=== PATIENT | female | born 1970 | race Caucasian/White ===

== ENCOUNTER 2016-03-03 06:14 | Day surgery (SDC) | payer MEDICAID ==
[2016-03-02 09:39] VITALS: BMI 33.6
[~2016-03-03] VITALS: Ht 149.9 cm; Wt 53.6 kg
[2016-03-03] VITALS (10 sets, daily range): BP systolic 96–138; BP diastolic 59–79; PULSE 64–80; RESP 11–18; Ht 149.9 cm; Wt 53.6 kg
[~2016-03-03 06:14] MED LIST: NAPR-260 PO
[2016-03-03 06:52] LABS: BASOPHILS % 0.9 % (0.0-2.0); EOSINOPHILS # 0.2 10^3/ul (0.0-0.5); EOSINOPHILS % 2.9 % (0.0-7.0); HEMATOCRIT 42.5 % (37.0-47.0); HEMOGLOBIN 14.5 g/dl (12.0-16.0); LYMPHOCYTES # 1.4 10^3/ul (0.8-2.9); LYMPHOCYTES % 26.3 % (15.0-51.0); MEAN CORPUSCULAR HEMOGLOBIN 31.7 pg (29.0-33.0); MEAN CORPUSCULAR VOLUME 93.1 fl (82.0-101.0); MEAN PLATELET VOLUME 7.1 fl (7.4-10.4); MONOCYTE # 0.4 10^3/ul (0.3-0.9); MONOCYTES % 8.1 % (0.0-11.0); NEUTROPHIL # 3.4 10^3/ul (1.6-7.5); NEUTROPHILS % 61.8 % (39.0-77.0); PLATELET COUNT 228 10^3/UL (140-440); RED BLOOD COUNT 4.56 10^6/ul (4.20-5.40); RED CELL DISTRIBUTION WIDTH 12.6 % (11.5-14.5); UNCORRECTED WBC 5.5 10^3/ul (4.8-10.8); WHITE BLOOD COUNT 5.5 10^3/ul (4.8-10.8)
[2016-03-03 06:58] LABS: CONDITION 1
[2016-03-03] MEDS ORDERED: SOD CHLORIDE 0.9% 1,000 ML IV SCH (07:00)
[2016-03-03] MEDS ORDERED: CEFAZOLIN 2 GM/50 ML (PMX) 50 ML IVPB SCH (07:00)
[2016-03-03 07:15] LABS: INR 0.98
[2016-03-03 07:21] LABS: CREATININE 0.52 mg/dl (0.44-1.00); POTASSIUM 3.6 mmol/L (3.5-5.1)
[2016-03-03] MEDS ORDERED: PROPOFOL 20 ML ONE (07:51)
[2016-03-03] MEDS ORDERED: MIDAZOLAM 1 MG/ML 2 ML INJ ONE (07:51)
[2016-03-03] MEDS ORDERED: FENTAnyl 50 MCG/ML VIAL ONE (07:51)
[2016-03-03] MEDS ORDERED: LIDOCAINE 1% (MPF) 30 ML INJ ONE (07:52)
[2016-03-03] MEDS ORDERED: PHENYLephrine (100 MCG/ML) 5ML SYG ONE (08:35)
[2016-03-03] MEDS ORDERED: CEFAZOLIN 1 GM INJ ONE (08:35)
[2016-03-03] MEDS ORDERED: KETOROLAC 30 MG INJ ONE (08:36)
[2016-03-03] MEDS ORDERED: METOCLOPRAMIDE 10 MG INJ ONE (08:36)
[2016-03-03] MEDS ORDERED: DEXAMETHASONE 4 MG/ML 1 ML INJ ONE (08:36)
[2016-03-03] MEDS ORDERED: ONDANSETRON 4 MG INJ ONE (08:36)
[2016-03-03] MEDS ORDERED: EPHEDrine SULFATE 50 MG/5 ML SYG IV PRN (09:00)
[2016-03-03] MEDS ORDERED: MEPERIDINE 25 MG INJ IV PRN (09:00)
[2016-03-03] MEDS ORDERED: HYDROmorphONE (0.2 MG/ML) 10ML SYG IV PRN ×2 (09:00)
[2016-03-03] MEDS ORDERED: ONDANSETRON 4 MG INJ IV PRN (09:00)
[2016-03-03] MEDS ORDERED: DIPHENHYDRAMINE 50 MG INJ IV PRN (09:00)
[2016-03-03] MEDS ORDERED: morphine (1 MG/ML) 10ML SYRINGE IV PRN ×3 (09:00)
[2016-03-03] MEDS ORDERED: LABETALOL HCL 20MG INJ IV PRN (09:00)
--- NOTE | 2016-03-03 09:19 | OPR ---
DATE OF OPERATION: 03/03/2016 PREOPERATIVE DIAGNOSIS: Left axillary mass. POSTOPERATIVE DIAGNOSIS: Left axillary mass, rule out lymphoma. OPERATION PERFORMED: Resection of left axillary mass (enlarged lymph nodes). ANESTHESIA: General. ANESTHESIOLOGIST: SURGEON: Daniel Morales MD [employer] INST[employer]ER: Manuel Hinojosa MD INDICATIONS FOR PROCEDURE: The patient is a 45-year-old female who presented with a suspicious mass in her left axilla that was enlarging, suspicious for possible malignancy. She was counseled as to the need for resection of the mass to obtain a definitive diagnosis. She consented and was schedul ed for surgery. DESCRIPTION OF PROCEDURE: The patient was brought to the operating theater, placed under general an esthesia. The left axillary region was prepped and draped in the usual sterile fashion. Approximat vineet a 3 cm incision was made in the left axillary hairline. Subcutaneous tissue was dissected with cautery down through the clavipectoral fascia, and an abnormal-appearing cluster of lymph nodes was identified. Decision was made to resect this cluster. This was done using LigaSure device. Specim en was sent for intraoperative analysis, performed by attending pathologist, Dr. Mackey. Intraopera tive analysis revealed findings suspicious for possible lymphoma. Dr. Mackey stated he had adequate tissue sample for definitive diagnosis; therefore, the wound was irrigated. Minimal bleeding was c ontrolled with cautery. A #10 flat Da-Webber drain was then brought through the left mid axilla ry line, cut to size, and laid within the axilla and secured in place with 2-0 nylon suture in a sta ndard fashion. The skin was then reapproximated with 4-0 Vicryl suture in subcuticular fashion. Th e patient tolerated the procedure well. Estimated blood loss was approximately 10 mL. There were n o complications, and the patient was transported in stable condition to the recovery room. Dictated By: DANIEL MORALES MD TL/NTS Conf#: [id number] DID#: [id number]
[2016-03-03] MEDS: HYDROmorphONE (0.2 MG/ML) 10ML SYG IV PRN ×3 (09:25→09:45)
== END 2016-03-03 23:00 | disposition home or self-care (01) ==
LOC: SDS 06:14
PROVIDERS: ATTEND Surgery Surgical Oncology
DX: C82.14 Follicular lymphoma grade II, lymph nodes of axilla and upper limb (principal)
CPT/HCPCS: 38500; 80048; 84703; 85025; 85610; 85730; 88307; 88331; J0690; J1100; J1170; J1885; J2250; J2370; J2405; J2765; J3010; Z7512; Z7610

== ENCOUNTER 2016-04-07 20:48 | Inpatient (IN) | payer MEDICAID ==
[~2016-04-07] VITALS: Ht 139.7 cm; Wt 53.2 kg
[2016-04-07] MEDS ORDERED: HYDROCODONE/APAP (5/325) TAB PO ONE (21:30)
[2016-04-07 22:19] LABS: ADD SCAN DIFF NO
[2016-04-07 22:21] LABS: BASOPHILS % 0.7 % (0.0-2.0); EOSINOPHILS # 0.1 10^3/ul (0.0-0.5); EOSINOPHILS % 1.5 % (0.0-7.0); HEMATOCRIT 43.4 % (37.0-47.0); HEMOGLOBIN 14.6 g/dl (12.0-16.0); LYMPHOCYTES # 1.4 10^3/ul (0.8-2.9); LYMPHOCYTES % 23.6 % (15.0-51.0); MEAN CORPUSCULAR HEMOGLOBIN 31.9 pg (29.0-33.0); MEAN CORPUSCULAR HGB CONC 33.6 g/dl (32.0-37.0); MEAN CORPUSCULAR VOLUME 94.8 fl (82.0-101.0); MONOCYTE # 0.6 10^3/ul (0.3-0.9); MONOCYTES % 9.1 % (0.0-11.0); NEUTROPHIL # 3.9 10^3/ul (1.6-7.5); NEUTROPHILS % 64.8 % (39.0-77.0); PLATELET COUNT 227 10^3/UL (140-415); RED BLOOD COUNT 4.58 10^6/ul (4.20-5.40); RED CELL DISTRIBUTION WIDTH 11.7 % (11.5-14.5); WHITE BLOOD COUNT 6.1 10^3/ul (4.8-10.8)
--- NOTE | 2016-04-07 22:21 | RADRPT ---
PROCEDURE: Ultrasound of the left parotid gland CLINICAL INDICATION: Left neck mass inferior to the ear with pain TECHNIQUE: Multiple transverse and longitudinal wiggins scale and color Doppler images of the left pa rotid gland were obtained. COMPARISON: None FINDINGS: The left parotid gland measures approximately 3.2 x 1.8 x 1.7 cm in size. The left parotid glands h ypoechoic in echogenicity. No focal mass or fluid collection is seen. No dilated parotid duct is i dentified. IMPRESSION: Hypoechoic left parotid gland which may be inflammatory in nature. Further evaluation with CT of th e neck with IV contrast is suggested. RPTAT: HPNM Physician Richardson Date Time Electronically viewed and signed by Physician Richardson on 04/07/2016 22:21 /
[2016-04-07 22:32] LABS: ALBUMIN 4.2 g/dl (3.3-4.9)
[2016-04-07 22:33] LABS: POTASSIUM 3.5 mmol/L (3.5-5.1)
[2016-04-07 22:35] LABS: ALBUMIN/GLOBULIN RATIO 1.27; BILIRUBIN,INDIRECT 0.9 mg/dl (0-1.1); BILIRUBIN,TOTAL 0.9 mg/dl (0.2-1.3); CREATININE 0.54 mg/dl (0.44-1.00); TOTAL PROTEIN 7.5 g/dl (6.1-8.1)
[2016-04-07 22:36] LABS: CALCIUM 9.2 mg/dl (8.4-10.2)
[2016-04-07] MEDS ORDERED: ONDANSETRON 4 MG INJ IV STA (23:08)
[2016-04-07] MEDS ORDERED: morphine 4 MG/ML VIAL IV STA (23:08)
--- NOTE | 2016-04-07 23:25 | ERA ---
ER Documentation Chief Complaint Date/Time DATE: 04/07/16 TIME: 23:12 Chief Complaint swelling left side of neck below ear x 3 months HPI 45-year-old female complaining of left-sided neck swelling and pain since this morning. Patient stated that she had a enlarged lymph node on the left side of the neck for several month, but it was small, without pain. Swelling started this morning, she feels hot from the area, the pain is constant. She also reports numbness in the left side of her chin. Patient stated that she had a enlarged lymph node on her left axilla that was biopsied one month ago. The biopsy showed B cell proliferative lymphoma. She does not have a PCP. The provider who did her biopsy had refer her to a PCP, but her appointment is on . She have not received chemotherapy. 2 weeks ago, she noticed a lymph node on her right axilla, and one in the right inguinal area. Denies fever or chills. Denies recent weight loss. Denies tobacco, alcohol, or illicit drug use. Patient is , living at home with her and 2 teenage daughters, aged 13 and 15. ROS All systems reviewed and are negative except as per history of present illness. Medications Home Meds Reported Medications [None] No Conflict Check 04/01/10 Allergies Allergies: Coded Allergies: No Known Allergy (Verified , 04/07/16) PMhx/Soc History of Surgery: Yes (C/ S X1) Anesthesia Reaction: No Hx Neurological Disorder: No Hx Respiratory Disorders: No Hx Cardiac Disorders: No Hx Psychiatric Problems: No Hx Miscellaneous Medical Probl: Yes (LEFT AXILLARY/NECK NODE) Hx Alcohol Use: No Hx Substance Use: No Hx Tobacco Use: No Smoking Status: Never smoker Physical Exam Vitals Vital Signs Date Time Temp Pulse Resp B/P Pulse Ox O2 Delivery O2 Flow Rate FiO2 04/07/16 20:58 98.8 84 20 141/65 99 Physical Exam General impression: Well-developed, well-nourished. Alert, oriented, in no acute distress Head: Normocephalic, atraumatic. Eyes: PERRL, EOM normal. Conjunctiva not injected. Neck: Supple. A 3 cm sized, firm mass noted on the left neck, adjacent to the angle of the mandible. Tender to light palpation. No nuchal rigidity. Respiration: Normal respiratory effort. Lungs clear to auscultate bilaterally. No wheezes, rales or rhonchi. Cardiovascular: Regular rate and rhythm. No murmurs or extra heart sounds. Abdomen: Abdomen normal to inspection. Nontender. No masses or organomegaly. Bowel sounds normal. Back: Normal to inspection. No midline spine tenderness. No CVA tenderness. Extremities: Extremities normal to inspection, nontender. ROM normal. Lymph: A 1x1.5 cm sized lymph node noted on the left axilla, a 1.5x2 cm sized lymph node noted in the right inguinal canal. Both nontender. Neuro: Mental status normal, speech normal. POND TENDER grossly intact. Skin: Normal turgor. No rash or lesions. Psych: Normal mood and affect. Result Diagram: 04/07/16220704/07/162207 Results 24 hrs Laboratory Tests Test 04/07/16 22:08 Alanine Aminotransferase (ALT/SGPT) 32IU/L Albumin 4.2g/dl Albumin/Globulin Ratio 1.27 Alkaline Phosphatase 75IU/L Anion Gap 16 Aspartate Amino Transf (AST/SGOT) 35IU/L Basophils # 0.010^3/ul Basophils % 0.7% Blood Urea Nitrogen 12mg/dl Calcium Level 9.2mg/dl Carbon Dioxide Level 29mmol/L Chloride Level 102mmol/L Creatinine 0.54mg/dl Direct Bilirubin 0.00mg/dl Eosinophils # 0.110^3/ul Eosinophils % 1.5% Globulin 3.30g/dl Glucose Level 125mg/dl Hematocrit 43.4% Hemoglobin 14.6g/dl Indirect Bilirubin 0.9mg/dl Lactate Dehydrogenase 483IU/L Lymphocytes # 1.410^3/ul Lymphocytes % 23.6% Mean Corpuscular Hemoglobin 31.9pg Mean Corpuscular Hemoglobin Concent 33.6g/dl Mean Corpuscular Volume 94.8fl Mean Platelet Volume 9.0fl Monocytes # 0.610^3/ul Monocytes % 9.1% Neutrophils # 3.910^3/ul Neutrophils % 64.8% Nucleated Red Blood Cells # 0.010^3/ul Nucleated Red Blood Cells % 0.0/100WBC Platelet Count 25503^3/UL Potassium Level 3.5mmol/L Red Blood Count 4.5810^6/ul Red Cell Distribution Width 11.7% Sodium Level 143mmol/L Total Bilirubin 0.9mg/dl Total Protein 7.5g/dl Uric Acid 4.0mg/dl White Blood Count 6.110^3/ul Current Medications Medications (Trade) Dose Ordered Sig/[place] Route PRN Reason Start Time Stop Time Status Last Admin Dose Admin Acetaminophen/ Hydrocodone Bitart ([place] (5/325)) 1 tab ONCE ONCE PO 04/07/16 21:30 04/07/16 21:32 DC 04/07/16 22:12 Morphine Sulfate (morphine) 4 mg ONCE STAT IV 04/07/16 23:08 04/07/16 23:09 DC Ondansetron HCl (Zofran Inj) 4 mg ONCE STAT IV 04/07/16 23:08 04/07/16 23:09 DC Procedures/MDM Well-appearing 45-year-old female presented to ED with newly diagnosed B-cell proliferative lymphoma, and increasing number of enlarged lymph nodes at multiple locations. I discussed the patient was Dr. Munson. Since patient does not have PCP follow-up and symptoms is getting worse, Dr. Munson recommended that patient be admitted to receive oncology consult and initiate chemotherapy. Ultrasound of the neck soft tissue showed a hypoechoic parotid gland measuring approximately 3.2 x 1.8 x 1.7 cm in size. CBC, CMP, uric acid, lactate dehydrogenase, and protein electrophoresis are obtained. Protein electrophoresis results are pending at this time. All other labs are unremarkable. Patient given Independence 5/325 p.o. in the ED for pain. Patient reports no relief of pain after Independence. Morphine 4 mg and Zofran 4 mg IV was then given to the patient. Patient will be admitted to MedSurg unit. Dr. Munson contacted the hospitalist for admission. TANISHA SANFORD NP Apr 07, 2016 23:24
[2016-04-07] MEDS ORDERED: DOCUSATE SODIUM 100 MG CAP PO PRN (23:30)
[2016-04-07] MEDS ORDERED: ZOLPIDEM 5 MG TAB PO PRN (23:30)
[2016-04-07] MEDS ORDERED: MAGNESIUM HYDROXIDE 30ML CUP PO PRN (23:30)
[2016-04-07] MEDS ORDERED: ACETAMINOPHEN 325 MG TAB PO PRN (23:30)
[2016-04-07] MEDS ORDERED: NACL 0.9% 3 ML SYG IV SCH (23:30)
[2016-04-08 00:50] VITALS: BP 127/72; PULSE 79; RESP 16; Ht 139.7 cm; Wt 53.2 kg
[2016-04-08] MEDS: morphine 2 MG INJ IV PRN (04:33)
[2016-04-08 05:28] LABS: ADD SCAN DIFF NO; BASOPHILS % 0.6 % (0.0-2.0); EOSINOPHILS # 0.1 10^3/ul (0.0-0.5); EOSINOPHILS % 1.7 % (0.0-7.0); HEMATOCRIT 40.8 % (37.0-47.0); HEMOGLOBIN 13.3 g/dl (12.0-16.0); LYMPHOCYTES # 1.4 10^3/ul (0.8-2.9); LYMPHOCYTES % 26.3 % (15.0-51.0); MEAN CORPUSCULAR HEMOGLOBIN 31.1 pg (29.0-33.0); MEAN CORPUSCULAR HGB CONC 32.6 g/dl (32.0-37.0); MEAN CORPUSCULAR VOLUME 95.3 fl (82.0-101.0); MEAN PLATELET VOLUME 9.3 fl (7.4-10.4); MONOCYTE # 0.6 10^3/ul (0.3-0.9); MONOCYTES % 10.5 % (0.0-11.0); NEUTROPHIL # 3.2 10^3/ul (1.6-7.5); NEUTROPHILS % 60.5 % (39.0-77.0); PLATELET COUNT 209 10^3/UL (140-415); RED BLOOD COUNT 4.28 10^6/ul (4.20-5.40); RED CELL DISTRIBUTION WIDTH 11.8 % (11.5-14.5); WHITE BLOOD COUNT 5.3 10^3/ul (4.8-10.8)
[2016-04-08 05:41] LABS: POTASSIUM 3.4 mmol/L (3.5-5.1)
[2016-04-08 05:44] LABS: CREATININE 0.51 mg/dl (0.44-1.00)
[2016-04-08 05:45] LABS: CALCIUM 8.6 mg/dl (8.4-10.2); CHOL/HDL RATIO 3.1 RATIO; PHOSPHORUS 3.9 mg/dl (2.5-4.9)
[2016-04-08 06:58] LABS: T3 UPTAKE 36.7 % (23.5-40.5)
[2016-04-08 08:01] VITALS: BP 134/80; RESP 20
[2016-04-08] MEDS: HYDROCODONE/APAP (5/325) TAB PO PRN ×3 (08:20→22:31)
[2016-04-08] MEDS: ENOXAPARIN 40 MG/0.4 ML SYG SC SCH (09:06)
--- NOTE | 2016-04-08 09:24 | HP ---
DATE OF ADMISSION: 04/07/2016 DATE OF ADMISSION: 04/07/2016 TIME: 2300 CHIEF COMPLAINT: Swollen lymph nodes. HISTORY OF PRESENT ILLNESS: The patient is a 45-year-old female with no past medical history. The patient recently has been noticing swelling of lymph nodes first on the left axilla and then in the right posterior neck and around the jaw. The patient had a recent biopsy that showed follicular lym phoma. She has no reported dedicated PCP and she has no followup with oncology. The patient is not icing that she is having worsening lymphadenopathy. She has no other complaints at this time. PAST MEDICAL HISTORY: Denies. PAST SURGICAL HISTORY: Denies with exception of the biopsy. HOME MEDICATIONS: None. ALLERGIES: NO KNOWN DRUG ALLERGIES. FAMILY HISTORY: Denies any cancer or any other medical issues in the family. SOCIAL HISTORY: Denies any alcohol, tobacco, or drug abuse. REVIEW OF SYSTEMS: A 12-point review of systems negative except for that listed in HPI. PHYSICAL EXAMINATION: VITAL SIGNS: Temperature is 97.9, pulse 79, respiratory rate 16, BP is 127/72, saturation 96% on ro om air. GENERAL: In no acute distress, alert and oriented. HEENT: Normocephalic, atraumatic. Pupils equal, round, reactive to light. LYMPHATICS: Lymphadenopathy is noted with swelling noted in the left jaw, posterior right neck subm ental region, by the right inguinal region and right axilla. LUNGS: Clear to auscultation. CARDIOVASCULAR: Regular rate and rhythm. ABDOMEN: Nondistended, nontender, soft. EXTREMITIES: No clubbing, cyanosis, or edema. LABORATORIES: CBC is within normal limits. Chemistry within normal limits. Globulin slightly elev ated at 2.3. DIAGNOSTICS: Soft tissue ultrasound of the left parotid gland shows hypoechoic left parotid gland w hich may be inflammatory in nature. Further evaluation with CT of the neck and IV contrast suggeste d. ASSESSMENT AND PLAN: 1. Follicular lymphoma, newly diagnosed. The patient just got her biopsy results back. Her admiss ion was because she has no dedicated PCP and no oncology appointment in the near future. She has an appointment with a PCP on 04/24/2016, but because of worsening nature of her lymphoma, she needs to see an oncologist soon. Primary team to consult oncology in the a.m. 2. Prophylaxis, Lovenox. Dictated By: RUBINA LUZ MD BS/NTS Conf#: [id number] DID#: [id number]
[2016-04-08] MEDS: ONDANSETRON 4 MG INJ IV PRN ×2 (09:46→18:26)
--- NOTE | 2016-04-08 17:42 | CONS ---
Date/Time of Note Date/Time of Note DATE: 04/08/16 TIME: 17:33 Assessment/Plan Assessment/Plan Chief Complaint/Hosp Course 45 yo with follicular lymphoma at least stage 3 as on physical exam it is above and below the diaphragm. To definitively stage this lymphoma we will need a CT Neck C/A/P as well as a bone marrow bx. We will also need to asses her FLIPI ( follicular Lymphoma international prognostic Index) Score which will help us to prognosticate her disease. CT C/A/P done demonstrates thick-walled 2.1 cm mass involving the left parotid gland that is likely an extrinsic enlarged lymph node however an intrinsic exophytic parotid mass cannot be excluded. Lymphadenopathy is also seen in the the right axilla, retroperitoneum extending along the left iliac chain and right inguinal region. -check LDH -check Hep panel in the case we need to use Rituxan -check HIV -Bone Marrow Bx will order for sunday -port a cath in preparation for chemotherapy Approximately 40 min were spent at patient's bedside and in coordination of her care Problems: Consultation Date/Type/Reason Admit Date/Time Apr 07, 2016 at 23:08 Date of Consultation: Apr 08, 2016 Type of Consultation: Hematology Reason for Consultation follicular lymphoma Referring Provider: GRAEME COHEN MD Hx of Present Illness 45-year-old female with no past medical history who has been developing painful lymphadenopathy that was first noted in her L axilla then the right posterior neck. Patient has been followed by her PMD who had a biopsy performed of a neck lymph node. Per the patient this revealed follicular lymphoma. It does not appear that any further workup has been done. She has not seen an oncologist. She presents to [facility] for worsening pain in the left neck due to growing lymphadenopathy. Constitutional: other (painful lymphadenopathy), poor po Eyes: no complaints ENT: other Respiratory: no complaints Cardiovascular: no complaints Gastrointestinal: no complaints Genitourinary: no complaints Musculoskeletal: neck pain, restricted range of motion Skin: no complaints Neurologic: no complaints Lymphatic: no complaints Past Medical History Medical History: no pertinent history Past Surgical History recent neck biopsy Family History Significant Family History: no pertinent family hx Social History Alcohol Use: none Smoking Status: Never smoker Drug Use: none Exam/Review of Systems Vital Signs Vitals Vital Signs Date Time Temp Pulse Resp B/P Pulse Ox O2 Delivery O2 Flow Rate FiO2 04/08/16 08:01 98.1 79 20 134/80 97 04/08/16 00:50 Room Air Intake and Output 04/07/16 04/07/16 04/08/16 15:00 23:00 07:00 Intake Total 300 ml Balance 300 ml Exam Constitutional: alert Psych: no complaints Head: atraumatic, normocephalic Eyes: nl conjunctiva ENMT: nl external ears & nose Neck: other (neck LAD noted) Respiratory: clear to auscultation, normal air movement Cardiovascular: regular rate and rhythm Gastrointestinal: soft Musculoskeletal: nl extremities to inspection, nl gait and stance Results Result Diagram: 04/08/16 04204/08/16 0420 Results 24 hrs Laboratory Tests Test 04/07/16 22:08 04/08/16 04:20 Alanine Aminotransferase (ALT/SGPT) 32 Albumin 4.2 Albumin/Globulin Ratio 1.27 Alkaline Phosphatase 75 Anion Gap 16 12 Aspartate Amino Transf (AST/SGOT) 35 Basophils # 0.0 0.0 Basophils % 0.7 0.6 Blood Urea Nitrogen 12 11 Calcium Level 9.2 8.6 Carbon Dioxide Level 29 26 Chloride Level 102 105 Creatinine 0.54 0.51 Direct Bilirubin 0.00 Eosinophils # 0.1 0.1 Eosinophils % 1.5 1.7 Globulin 3.30 H Glucose Level 125 107 Hematocrit 43.4 40.8 Hemoglobin 14.6 13.3 Indirect Bilirubin 0.9 Lactate Dehydrogenase 483 Lymphocytes # 1.4 1.4 Lymphocytes % 23.6 26.3 Mean Corpuscular Hemoglobin 31.9 31.1 Mean Corpuscular Hemoglobin Concent 33.6 32.6 Mean Corpuscular Volume 94.8 95.3 Mean Platelet Volume 9.0 # 9.3 Monocytes # 0.6 0.6 Monocytes % 9.1 10.5 Neutrophils # 3.9 3.2 Neutrophils % 64.8 60.5 Nucleated Red Blood Cells # 0.0 0.0 Nucleated Red Blood Cells % 0.0 0.0 Platelet Count 227 209 Potassium Level 3.5 3.4 L Red Blood Count 4.58 4.28 Red Cell Distribution Width 11.7 11.8 Sodium Level 143 140 Total Bilirubin 0.9 Total Protein 7.5 Uric Acid 4.0 White Blood Count 6.1 5.3 Cholesterol Level 122 Cholesterol/HDL Ratio 3.1 Free Thyroxine Index 2.46 HDL Cholesterol 39 Hemoglobin A1c 5.1 LDL Cholesterol, Calculated 73 Magnesium Level 2.0 Phosphorus Level 3.9 Thyroxine (T4) 6.7 Triglycerides Level 50 Triiodothyronine (T3) Uptake 36.7 Medications Medications Current Medications Ondansetron HCl (Zofran Inj) 4 mg Q6H PRN IV NAUSEA AND/OR VOMITING Last administered on 04/08/16 09:46; Admin Dose 4 MG; Start 04/07/16 at 23:30 Acetaminophen (Tylenol Tab) 650 mg Q6H PRN PO PAIN LEVEL 1-3 OR FEVER; Start at 23:30 Acetaminophen/ Hydrocodone Bitart ([place] (5/325)) 1 tab Q6H PRN PO MODERATE PAIN LEVEL 4-6 Last administered on 04/08/16 14:27; Admin Dose 1 TAB; Start 12/12 at 23:30 Morphine Sulfate (morphine) 2 mg Q4H PRN IV SEVERE PAIN LEVEL 7-10 Last administered on 04/08/16 04:33; Admin Dose 2 MG; Start 04/07/16 at 23:30 Docusate Sodium (Colace) 100 mg Q12H PRN PO CONSTIPATION; Start 04/07/16 at 23: 30 Magnesium Hydroxide (Milk Of Mag) 30 ml DAILY PRN PO CONSTIPATION; Start at 23:30 Zolpidem Tartrate (Ambien) 5 mg QHS PRN PO SLEEP; Start 04/07/16 at 23:30 Enoxaparin Sodium (Lovenox) 40 mg DAILY SC Last administered on 04/08/16 09:06 ; Admin Dose 40 MG; Start 04/08/16 at 09:00 DEDE SOTO M.D. Apr 08, 2016 17:42
[2016-04-08] MEDS ORDERED: BARIUM SULF 2% 450 ML BTL (BERRY SMOOTHIE) PO ONE (18:00)
[2016-04-08 18:04] LABS: HAAIG REFLEX REFLEX FILED
[2016-04-08] MEDS ORDERED: IODIXANOL LOCM 100 ML BTL ONE (20:49)
[2016-04-08] MEDS ORDERED: SOD CHLORIDE 0.9% 100 ML ONE (20:49)
[2016-04-08 21:34] LABS: LACTATE DEHYDROGENASE 619 IU/L (313-618)
[2016-04-08 22:24] LABS: HEPATITIS B CORE ANTIBODY NEGATIVE (NEGATIVE)
[2016-04-09 02:09] LABS: PROTEIN, TOTAL 7.1 g/dL (6.1-8.1)
[2016-04-09] MEDS ORDERED: IOHEXOL 300MG/ML 150 ML BTL ONE (02:29)
[2016-04-09] MEDS ORDERED: SOD CHLORIDE 0.9% 100 ML ONE (02:29)
[2016-04-09] MEDS: morphine 2 MG INJ IV PRN (04:02)
[2016-04-09 08:08] VITALS: BP 130/68; RESP 14
--- NOTE | 2016-04-09 08:14 | RADRPT ---
PROCEDURE: CT Chest abdomen and pelvis with contrast. CLINICAL INDICATION: follicular lymphoma TECHNIQUE: CT scan of the chest abdomen pelvis with contrast was performed on a multidetector high -resolution CT scan. The patient was scanned chest abdomen pelvis following the uncomplicated intra venous administration of 100 ml Visipaque 320. Coronal and sagittal reformatted images were obtained from the axial source images. CT chest abdomen pelvis with contrast protocols were performed. The total exam CTDI equals 8.4 mGy and the total exam DLP equals 552.5 mGy-cm. One or more of the following dose reduction techniques were used: - Automated exposure control. - Adjustment of the mA and/or kV according to patient size. Use of iterative reconstruction technique. COMPARISON: None. FINDINGS: There is a 2 cm enlarged lymph node in the right axilla. No evidence of supraclavicular or left ax illary lymphadenopathy. No evidence of mediastinal or hilar lymphadenopathy. There is extensive ret roperitoneal lymphadenopathy most pronounced along the left periaortic region starting at approximat vineet the portal venous confluence in continuing along the left common iliac and internal external ines ac arteries. The largest lymph node is seen along the proximal left common iliac artery measuring a pproximately 2.8 cm at the level of the medial left kidney measuring approximately 3.3 cm. There is severely enlarged lymph node in the right inguinal region measuring 4.3 cm. There is no evidence of pleural or pericardial effusions. Negative for pneumothoraces. There is no evidence of pulmonary nodules bilaterally. There is mild bibasilar chronic parenchymal lung diseas e. The heart to be normal size. The gallbladder is unremarkable and there is no evidence of biliary ductal dilation. The liver sple en pancreas and adrenal glands are normal in size configuration without focal lesions. The kidneys are normal in size without hydronephrosis or intra renal masses bilaterally. The stomach, small bow el and large bowel are unremarkable. The appendix is unremarkable. The uterus is anteverted and ant eflexed. Multiple confluent low densities in the left adnexal region likely ovarian cysts. There is a small amount of free fluid in the cul-de-sac. No other abdominal free fluid. Negative for free air abscess. There is exaggerated lumbar lordosis. There is degenerative changes of the thoracic and lumbar spin e. There are no osteoblastic or osteolytic lesions. The aorta is unremarkable. IMPRESSION: 1. Lymphadenopathy as described above involving the right axilla, retroperitoneum extending along t he left iliac chain and right inguinal region. 2. Multiple confluent low densities in the left adnexal region likely ovarian cyst. Small amount o f free fluid in the cul-de-sac. 3. No evidence of thoracic effusions or pulmonary nodules. 4. No evidence of visceral masses. 5. No evidence of osteoblastic or osteolytic lesions. RPTAT:AAJJ Physician Kimberly Date Time Electronically viewed and signed by Emanuel Santiago Physician on 04/09/2016 08:13 BM/
--- NOTE | 2016-04-09 08:30 | RADRPT ---
PROCEDURE: CT neck with contrast. CLINICAL INDICATION: follicular lymphoma TECHNIQUE: CT scan of the neck with contrast was performed on a multidetector high-resolution CT s can. The patient was scanned following the uncomplicated intravenous administration of 80 ml Omnipa que-300. Coronal and sagittal reformatted images were obtained from the axial source images. Standar d CT scan of the neck with contrast protocols were performed. The total exam CTDI equals 7.97 mGy and the total exam DLP equals 175.86 mGy-cm. One or more of the following dose reduction techniques were used: - Automated exposure control. - Adjustment of the mA and/or kV according to patient size. Use of iterative reconstruction technique. COMPARISON: CT scan of the neck 02/05/2016 FINDINGS: There is no change in the thick-walled low-density mass measuring 2.1 cm along the inferior left par otid gland that is likely an enlarged extrinsic lymph node impressing the parotid gland however an exophytic parotid mass cannot be excluded. The remainder of the left parotid gland is unremarkable. The right parotid gland is unremarkable. The submandibular glands are unremarkable. No change in the moderately enlarged left sublingual lymphadenopathy with a maximal diameter of approximately 1. 8 cm. No change no change of the bilateral level 2 and level 3 lymph adenopathy measuring up to alan roximately 1.2 cm in short axis. No new cervical lymphadenopathy. The thyroid gland enhances homog eneously without focal lesions. The airway is unremarkable. The paranasal sinuses visualized are u nremarkable the mastoids are unremarkable. There is degenerative changes of the upper thoracic spin e. There are no osteoblastic or osteolytic lesions. IMPRESSION: 1. No significant change. 2. No change in the thick-walled 2.1 cm mass involving the left parotid gland that is likely an ext rinsic enlarged lymph node however an intrinsic exophytic parotid mass cannot be excluded. 3. No change in the level I, II and III lymphadenopathy. 4. No new lymphadenopathy. RPTAT:AAJJ Physician Kimberly Date Time Electronically viewed and signed by Physician Kimberly on 04/09/2016 08:30 BM/
[2016-04-09] MEDS: ENOXAPARIN 40 MG/0.4 ML SYG SC SCH (09:04)
--- NOTE | 2016-04-09 09:05 | PN ---
DATE: 04/08/2016 SUBJECTIVE: Chart reviewed. No significant events noted. PHYSICAL EXAMINATION: VITAL SIGNS: Blood pressure 134/80, pulse 79, respirations 20, temperature 98.1, saturating 97% on room air. HEENT: Pupils are equal and reactive to light. Anicteric sclerae. NECK: Left parotid area swelling. LUNGS: Fair breath sounds. CARDIOVASCULAR: S1, S2 normal. ABDOMEN: Soft, nontender. No organomegaly or masses noted. EXTREMITIES: No clubbing, cyanosis, or edema noted. NEUROLOGIC: No focal deficits. LABORATORY DATA: Sodium 140, potassium 3.4, chloride 105, CO2 of 26, BUN 11, creatinine 0.51, gluco se 107. WBC 5.3, hemoglobin 13.3, hematocrit 40.8, platelets 209. IMPRESSION: Recently diagnosed follicular lymphoma. RECOMMENDATIONS: Oncology consultation requested. Dictated By: GRAEME COHEN MD, MA/TELMA Conf#: [id number] DID#: [id number]
--- NOTE | 2016-04-09 10:55 | PN ---
DATE: 04/09/2016 INTERNAL MEDICINE FOLLOWUP SUBJECTIVE: Chart reviewed. Oncology consultation appreciated. Currently, the patient on room air saturating 96% and does not appear to be in acute distress. OBJECTIVE: VITAL SIGNS: Blood pressure 130/68, pulse 75, respirations 14, temperature 98.5. HEENT: Pupils are equal and reactive to light. Anicteric sclerae. NECK: Left parotid area swelling. LUNGS: Clear to auscultation and percussion. CARDIOVASCULAR: S1, S2 normal. ABDOMEN: Soft, nontender. No organomegaly or masses noted. EXTREMITIES: No clubbing, cyanosis, or edema noted. NEUROLOGIC: No deficits. LABORATORY DATA: LDH 619. HIV test is negative. Hepatitis A, B, and C screen negative. IMPRESSION: Recently diagnosed follicular lymphoma. PLAN 1. CT neck, chest, abdomen, and pelvis as per oncology recommendations. 2. Bone marrow biopsy on Sunday. 3. Follow up labs. Dictated By: GRAEME COHEN MD, MA/TELMA Conf#: [id number] DID#: [id number]
[2016-04-09 11:34] LABS: INR 0.97; PROTIME 12.9 Sec (12.2-14.2)
[2016-04-09 19:38] VITALS: BP 126/70; RESP 17
[2016-04-10] VITALS (22 sets, daily range): BP systolic 92–125; BP diastolic 50–72; PULSE 77–100; RESP 13–20
[2016-04-10] MEDS: ENOXAPARIN 40 MG/0.4 ML SYG SC SCH (08:52)
[2016-04-10] MEDS ORDERED: HEPARIN 1000 UNITS/ML 10 ML INJ ONE (09:48)
[2016-04-10] MEDS ORDERED: LIDOCAINE 1% (MDV) 20 ML INJ ONE (09:48)
[2016-04-10] MEDS ORDERED: SOD CHLORIDE 0.9% 500 ML ONE (09:49)
[2016-04-10] MEDS ORDERED: MIDAZOLAM 1 MG/ML 2 ML INJ ONE ×2 (09:49→11:28)
[2016-04-10] MEDS ORDERED: FENTAnyl 50 MCG/ML VIAL ONE ×2 (09:49→11:28)
[2016-04-10] MEDS ORDERED: LIDOCAINE 1%/EPI (MDV) 20 ML INJ ONE (09:49)
[2016-04-10] MEDS ORDERED: CEFAZOLIN 1 GM/50 ML (PMX) 50 ML IVPB ONE (11:28)
[2016-04-10] MEDS ORDERED: POLYMYXIN/BACITRACIN 1L IRRIG IRR SCH (12:00)
--- NOTE | 2016-04-10 13:56 | CONS ---
Date/Time of Note Date/Time of Note DATE: 04/10/16 TIME: 13:49 Assessment/Plan Assessment/Plan Chief Complaint/Hosp Course 45 yo with follicular lymphoma grade 2, CD 10+ with IGH/BCL2 Fusion t(14;18) detected. Patient has at least stage 3 disease as on physical exam it is above and below the diaphragm per CT. To definitively stage this lymphoma we will need a bone marrow bx. Pt has a FLIPI (follicular Lymphoma international prognostic Index) Score of 2 which gives her Intermate risk disease. 70% of these patients are expected to have a [address] C/A/P done demonstrates thick-walled 2.1 cm mass involving the left parotid gland that is likely an extrinsic enlarged lymph node however an intrinsic exophytic parotid mass cannot be excluded. Lymphadenopathy is also seen in the the right axilla , retroperitoneum extending along the left iliac chain and right inguinal region. Workup thus far reveals negative HIV and Hep panel and normal LDH. -Bone Marrow Bx will order for today -port a cath in preparation for chemotherapy -plan to start Rituxan Bendamustine in house given her painful lymphadenopathy. Regimen as follows: Bendamustine 90 mg/m2 IV over 30 to 60 minutes once per day on days 1 & 2 Rituximab (Rituxan) 375 mg/m2 IV once on day 1 Supportive medications Antiemetics, antipyretics, and antibiotics according to local standard of care Prophylactic use of G-CSF allowed according ASCO guidelines (2006) 28-day cycle for up to 6 cycles Approximately 40 min were spent at patient's bedside and in coordination of her care Problems: Consultation Date/Type/Reason Admit Date/Time Apr 07, 2016 at 23:08 Initial Consult Date 04/08/16 Type of Consultation: Hematology Reason for Consultation Follicular lymphoma Referring Provider: GRAEME COHEN MD 24 HR Interval Summary Free Text/Dictation no acute overnight events Exam/Review of Systems Vital Signs Vitals Vital Signs Date Time Temp Pulse Resp B/P Pulse Ox O2 Delivery O2 Flow Rate FiO2 04/10/16 13:20 98.1 97 19 97/59 95 Room Air 04/10/16 12:10 2.0 Intake and Output 04/09/16 04/09/16 04/10/16 15:00 23:00 07:00 Intake Total 860 ml Balance 860 ml Exam Constitutional: alert, oriented Psych: no complaints Head: atraumatic, normocephalic Eyes: nl conjunctiva ENMT: nl external ears & nose Neck: non-tender, other (submental and left post auricular LAD unchanged), supple Respiratory: clear to auscultation Cardiovascular: nl pulses Gastrointestinal: other (inguinal LAD unchanged), soft Extremities: normal pulses Neurological: LEAF BLENDER II-XII intact Results Result Diagram: 04/08/1641904/08/16419 Medications Medications Current Medications Ondansetron HCl (Zofran Inj) 4 mg Q6H PRN IV NAUSEA AND/OR VOMITING Last administered on 04/08/16 18:26; Admin Dose 4 MG; Start 04/07/16 at 23:30 Acetaminophen (Tylenol Tab) 650 mg Q6H PRN PO PAIN LEVEL 1-3 OR FEVER; Start at 23:30 Acetaminophen/ Hydrocodone Bitart ([place] (5/325)) 1 tab Q6H PRN PO MODERATE PAIN LEVEL 4-6 Last administered on 04/08/16 22:31; Admin Dose 1 TAB; Start 12/12 at 23:30 Morphine Sulfate (morphine) 2 mg Q4H PRN IV SEVERE PAIN LEVEL 7-10 Last administered on 04/09/16 04:02; Admin Dose 2 MG; Start 04/07/16 at 23:30 Docusate Sodium (Colace) 100 mg Q12H PRN PO CONSTIPATION; Start 04/07/16 at 23: 30 Magnesium Hydroxide (Milk Of Mag) 30 ml DAILY PRN PO CONSTIPATION; Start at 23:30 Zolpidem Tartrate (Ambien) 5 mg QHS PRN PO SLEEP; Start 04/07/16 at 23:30 Enoxaparin Sodium (Lovenox) 40 mg DAILY SC Last administered on 04/09/16 09:04 ; Admin Dose 40 MG; Start 04/08/16 at 09:00 DEDE SOTO M.D. Apr 10, 2016 13:56
--- NOTE | 2016-04-10 14:22 | RADRPT ---
PROCEDURE: FLUOROSCOPIC AND ULTRASONOGRAPHIC-GUIDED PLACEMENT OF RIGHT CHEST PORT. CLINICAL INDICATION: History of lymphoma. Venous access for chemotherapy. TECHNIQUE: INTRAPROCEDURE MEDICATIONS: PB antibiotic solution 40 cc applied topically. 1 gram Ancef intravenous ly, intra-op. IV Versed and Fentanyl per protocol. Informed consent was obtained. The procedure, risks, benefits, complications and alternatives were explained to the patient. Risks including bleeding, infection, and pneumothorax were explained. The patient understood and was willing to proceed. A procedural pause was performed. The patient's name, date of , and procedure to be performed w ere verified. The central line was inserted with all elements of maximal sterile barrier technique. All of the fol lowing were used: head covering, facial mask, sterile gown, sterile gloves, a large sterile sheet, h and hygiene, and 2% chlorhexidine for cutaneous antisepsis. The right neck and anterior/superior chest wall were prepped and draped in usual sterile fashion. Limited sonography of the right neck was then performed. Noted is a patent right internal jugular ve in. Following the local injection of 1% lidocaine, the right internal jugular vein was punctured under s onographic guidance with a 20-gauge needle through which a 0.018 inch floppy tip guidewire was advan deborah into the superior vena cava with fluoroscopic guidance. The tract was dilated to 5 [place] and the wire was then replaced with a 0.035 in Amplatz guidewire. Serial dilatation was then performed and a 7 [place] peel away sheath was introduced. A site just inferior to the clavicle in the superior anterior right chest wall was localized. One pe rcent lidocaine was used as local anesthesia. A transverse 2.5 cm incision was made utilizing a 15 b lade scalpel. Utilizing blunt dissection a subcutaneous pocket was created inferior to the incision. The cavity was flushed with approximately 40 cc of PB antibiotic solution. The catheter was tunneled underneath the skin from the newly created pocket to the puncture site in the neck. The central line catheter was pulled through the tract. The catheter was then advanced thr ough the sheath until the tip was positioned in the right atrium. The peel-away sheath was removed. The catheter was flushed and clamped. The 6.6 [place] catheter was then connected to the Angiodynamics power port. The port was then placed into the pocket. Prior to closing the instrument and sponge count was verified and was correct. The subcutaneous tissue was closed with 3-0 Vicryl interrupted suture. The skin at the site of the pock et and in the neck was closed with 4-0 Vicryl suture in a running subcuticular technique. The port w as flushed with 1500 units of heparin in 1.5 cc utilizing a Gaffney needle. The needle was removed. A dressing was applied. The patient tolerated procedure well. COMPARISON: None. FINDINGS: Ultrasound images were recorded and stored in the patient's medical record. Final radiographic images demonstrate the tip of the catheter in the upper right atrium. A total of 0.2 minutes of fluoroscopy time was used. The ultrasound images demonstrate the needle entering th e internal jugular vein. IMPRESSION: 1. Successful ultrasonographic and fluoroscopic guided placement of right chest power port. RPTAT: QQ .Jean Argueta MD, Date Time Electronically viewed and signed by .Jean Argueta MD, on 04/10/2016 14:22 .R/
--- NOTE | 2016-04-10 14:25 | RADRPT ---
PROCEDURE: CT guided bone marrow aspiration and left iliac bone biopsy. CLINICAL INDICATION: History of follicular lymphoma. TECHNIQUE: Informed consent was obtained. The procedure, risks, benefits, complications and alternatives were e xplained to the patient. Risks including bleeding and infection were explained. The patient understo od and was willing to proceed. A procedural pause was performed. The patient's name, date of , and procedure to be performed were verified. One or more of the following dose reduction techni ques were used: Automated exposure control, adjustment of the mA and/or kV according to patient size , use of iterative reconstruction technique. Using local anesthetic, sterile technique and CT guidance, an 11-gauge On Control bone biopsy needle was advanced into the left iliac bone via a posterior approach. Bone marrow aspiration was perform ed yielding approximately 10 ml. The bone biopsy needle was then advanced an additional 4 cm using the power drill device and tissue was obtained. Adequate tissue was obtained according to the patho logist present during the procedure. The needle was removed. A postprocedural scan was performed. A dressing was applied. The patient tolerated procedure well. COMPARISON: None. FINDINGS: Initial images demonstrate the tip of the needle at the posterior margin of the left iliac bone. [place] bsequent images demonstrate the needle within the bone. Post biopsy images demonstrate no immediate complication. IMPRESSION: 1. Successful CT guided bone marrow aspiration and biopsy. RPTAT: QQ .Jean Argueta MD, Date Time Electronically viewed and signed by .Jean Argueta MD, on 04/10/2016 14:25 .R/
--- NOTE | 2016-04-10 16:26 | PN ---
Date/Time of Note Date/Time of Note DATE: 04/10/16 TIME: 16:24 Assessment/Plan VTE Prophylaxis VTE Prophylaxis Intervention: LMWH Lines/Catheters IV Catheter Type (from Nrs): PREMA CATH Urinary Cath still in place: No Assessment/Plan Chief Complaint/Hosp Course S: No events O: Vss PE No pallor; adenopathy appreciated. Regular ctab Benign No edema A/P 1. Follicular lymphoma Stage 3; grade 2, CD 10+ with IGH/BCL2 Fusion t(14;18). Stable, start chemo. Problems: Exam/Review of Systems Vital Signs Vitals Vital Signs Date Time Temp Pulse Resp B/P Pulse Ox O2 Delivery O2 Flow Rate FiO2 04/10/16 14:40 98.0 92 20 112/56 96 Room Air 04/10/16 12:10 2.0 Intake and Output 04/09/16 04/09/16 04/10/16 15:00 23:00 07:00 Intake Total 860 ml Balance 860 ml Results Result Diagram: 04/08/1641904/08/16419 Medications Medications Current Medications Ondansetron HCl (Zofran Inj) 4 mg Q6H PRN IV NAUSEA AND/OR VOMITING Last administered on 04/08/16 18:26; Admin Dose 4 MG; Start 04/07/16 at 23:30 Acetaminophen (Tylenol Tab) 650 mg Q6H PRN PO PAIN LEVEL 1-3 OR FEVER; Start at 23:30 Acetaminophen/ Hydrocodone Bitart ([place] (5/325)) 1 tab Q6H PRN PO MODERATE PAIN LEVEL 4-6 Last administered on 04/08/16 22:31; Admin Dose 1 TAB; Start 12/12 at 23:30 Morphine Sulfate (morphine) 2 mg Q4H PRN IV SEVERE PAIN LEVEL 7-10 Last administered on 04/09/16 04:02; Admin Dose 2 MG; Start 04/07/16 at 23:30 Docusate Sodium (Colace) 100 mg Q12H PRN PO CONSTIPATION; Start 04/07/16 at 23: 30 Magnesium Hydroxide (Milk Of Mag) 30 ml DAILY PRN PO CONSTIPATION; Start at 23:30 Zolpidem Tartrate (Ambien) 5 mg QHS PRN PO SLEEP; Start 04/07/16 at 23:30 Enoxaparin Sodium (Lovenox) 40 mg DAILY SC Last administered on 04/09/16t 09:04 ; Admin Dose 40 MG; Start 04/08/16 at 09:00 BETH WASHINGTON MD Apr 10, 2016 16:26
[2016-04-10] MEDS ORDERED: IBUPROFEN 600 MG TAB PO PRN (16:30)
--- NOTE | 2016-04-10 17:54 | RADRPT ---
PROCEDURE: Ultrasound guidance for placement of needle in right internal jugular vein. CLINICAL INDICATION: Venous access. TECHNIQUE: Prior to the procedure, informed consent was obtained. Risks including bleeding, infection, and pneu mothorax were explained to the patient. The patient understood and was willing to proceed. A procedu ral pause was performed. The patient's name, date of , and procedure to be performed were verif ied. The central line was inserted with all elements of maximal sterile barrier technique. All of th e following were used: head covering, facial mask, sterile gown, sterile gloves, a large sterile she et, hand hygiene, and 2% chlorhexidine for cutaneous antisepsis. The right neck and anterior/super ior chest wall was prepped and draped in usual sterile fashion. Limited sonography of the right neck was then performed. Noted is a patent right internal jugular ve in. Ultrasound images were recorded and stored in the patient's medical record. Following the local injection of Xylocaine, the right internal jugular vein was punctured under sono graphic guidance with a 20-gauge needle through which a 0.018 inch floppy tip guidewire was advanced into the superior vena cava. The patient tolerated the procedure well. The remainder of the proce dure was performed and dictated under separate cover. COMPARISON: None. FINDINGS: The ultrasound images demonstrate a patent right internal jugular vein. The subsequent images demon strate the needle entering the right internal jugular vein. IMPRESSION: 1. Ultrasound guidance for a needle placement in right internal jugular vein. RPTAT: QQ .Jean Argueta MD, Date Time Electronically viewed and signed by .Jean Argueta MD, on 04/10/2016 17:54 .R/
[2016-04-10 18:51] LABS: HEPATITIS B SURFACE ANTIBODY NEGATIVE (NEGATIVE)
[2016-04-10] MEDS: HYDROCODONE/APAP (5/325) TAB PO PRN (19:48)
[2016-04-11] VITALS (9 sets, daily range): BP systolic 95–122; BP diastolic 56–74; PULSE 77–87; RESP 16–20
[2016-04-11 06:04] LABS: BASOPHILS % 0.5 % (0.0-2.0); EOSINOPHILS # 0.2 10^3/ul (0.0-0.5); EOSINOPHILS % 3.1 % (0.0-7.0); HEMATOCRIT 38.7 % (37.0-47.0); HEMOGLOBIN 13.2 g/dl (12.0-16.0); LYMPHOCYTES # 1.3 10^3/ul (0.8-2.9); LYMPHOCYTES % 23.6 % (15.0-51.0); MEAN CORPUSCULAR HEMOGLOBIN 32.2 pg (29.0-33.0); MEAN CORPUSCULAR HGB CONC 34.2 g/dl (32.0-37.0); MEAN CORPUSCULAR VOLUME 94.3 fl (82.0-101.0); MEAN PLATELET VOLUME 7.7 fl (7.4-10.4); MONOCYTE # 0.5 10^3/ul (0.3-0.9); MONOCYTES % 9.2 % (0.0-11.0); NEUTROPHIL # 3.5 10^3/ul (1.6-7.5); NEUTROPHILS % 63.6 % (39.0-77.0); PLATELET COUNT 198 10^3/UL (140-440); RED CELL DISTRIBUTION WIDTH 12.2 % (11.5-14.5); UNCORRECTED WBC 5.5 10^3/ul (4.8-10.8); WHITE BLOOD COUNT 5.5 10^3/ul (4.8-10.8)
[2016-04-11 06:12] LABS: CREATININE 0.56 mg/dl (0.44-1.00)
[2016-04-11 06:13] LABS: CALCIUM 8.6 mg/dl (8.4-10.2)
[2016-04-11 06:33] LABS: CONDITION 1
[2016-04-11 07:46] LABS: THYROID STIMULATING HORMONE 5.1 MIU/L (0.465-4.680)
[2016-04-11] MEDS: ENOXAPARIN 40 MG/0.4 ML SYG SC SCH (08:57)
--- NOTE | 2016-04-11 11:34 | CONS ---
Date/Time of Note Date/Time of Note DATE: 04/11/16 TIME: 11:33 Assessment/Plan Assessment/Plan Chief Complaint/Hosp Course 45 yo with follicular lymphoma grade 2, CD 10+ with IGH/BCL2 Fusion t(14;18) detected. Patient has at least stage 3 disease as on physical exam it is above and below the diaphragm per CT. To definitively stage this lymphoma we will need a bone marrow bx. Pt has a FLIPI (follicular Lymphoma international prognostic Index) Score of 2 which gives her Intermate risk disease. 70% of these patients are expected to have a [address] C/A/P done demonstrates thick-walled 2.1 cm mass involving the left parotid gland that is likely an extrinsic enlarged lymph node however an intrinsic exophytic parotid mass cannot be excluded. Lymphadenopathy is also seen in the the right axilla , retroperitoneum extending along the left iliac chain and right inguinal region. Workup thus far reveals negative HIV and Hep panel and normal LDH. -Bone Marrow Bx done. will f/u results -port a cath in place in preparation for chemotherapy -plan to start Rituxan Bendamustine in house given her painful lymphadenopathy. Regimen as follows: Bendamustine 90 mg/m2 IV over 30 to 60 minutes once per day on days 1 & 2 Rituximab (Rituxan) 375 mg/m2 IV once on day 1 Supportive medications Antiemetics, antipyretics, and antibiotics according to local standard of care Prophylactic use of G-CSF allowed according ASCO guidelines (2006) 28-day cycle for up to 6 cycles Approximately 40 min were spent at patient's bedside and in coordination of her care Problems: Consultation Date/Type/Reason Admit Date/Time Apr 07, 2016 at 23:08 Initial Consult Date 04/08/16 Type of Consultation: Hematology Reason for Consultation follicular lymphoma Referring Provider: GRAEME COHEN MD 24 HR Interval Summary Free Text/Dictation pt had her bone marrow bx and port a cath placed yesterday Exam/Review of Systems Vital Signs Vitals Vital Signs Date Time Temp Pulse Resp B/P Pulse Ox O2 Delivery O2 Flow Rate FiO2 04/11/16 08:13 99.0 80 19 117/67 97 04/10/16 14:40 Room Air 04/10/16 12:10 2.0 Intake and Output 04/10/16 04/10/16 04/11/16 15:00 23:00 07:00 Intake Total 450 ml 550 ml Balance 450 ml 550 ml Exam Constitutional: alert, oriented Head: atraumatic, normocephalic Eyes: nl conjunctiva ENMT: nl external ears & nose Neck: non-tender, supple Respiratory: clear to auscultation, normal air movement Cardiovascular: nl pulses, regular rate and rhythm Gastrointestinal: soft Musculoskeletal: nl extremities to inspection, nl gait and stance Extremities: normal pulses Results Result Diagram: 04/11/165 04/11/16434 Results 24 hrs Laboratory Tests Test 04/10/16 13:40 04/10/16 19:46 04/11/16 04:35 HIV (1&2) Antibody NEGATIVE Hepatitis B Surface Antibody NEGATIVE Hepatitis B Surface Antigen NEGATIVE Hepatitis C Antibody NEGATIVE Urine Test NEGATIVE Anion Gap 11 Basophils # 0.0 Basophils % 0.5 Blood Urea Nitrogen 14 Calcium Level 8.6 Carbon Dioxide Level 28 Chloride Level 104 Creatinine 0.56 Eosinophils # 0.2 Eosinophils % 3.1 Glucose Level 85 Hematocrit 38.7 Hemoglobin 13.2 Hemoglobin A1c 5.1 Lymphocytes # 1.3 Lymphocytes % 23.6 Mean Corpuscular Hemoglobin 32.2 Mean Corpuscular Hemoglobin Concent 34.2 Mean Corpuscular Volume 94.3 Mean Platelet Volume 7.7 Monocytes # 0.5 Monocytes % 9.2 Neutrophils # 3.5 Neutrophils % 63.6 Nucleated Red Blood Cells # 0.0 Nucleated Red Blood Cells % 0.0 Platelet Count 198 Potassium Level 4.0 Red Blood Count 4.10 L Red Cell Distribution Width 12.2 Sodium Level 139 Thyroid Stimulating Hormone (TSH) 5.100 H White Blood Count 5.5 Medications Medications Current Medications Ondansetron HCl (Zofran Inj) 4 mg Q6H PRN IV NAUSEA AND/OR VOMITING Last administered on 04/08/16 18:26; Admin Dose 4 MG; Start 04/07/16 at 23:30 Acetaminophen (Tylenol Tab) 650 mg Q6H PRN PO PAIN LEVEL 1-3 OR FEVER Last administered on 04/11/16 06:03; Admin Dose 650 MG; Start 04/07/16 at 23:30 Acetaminophen/ Hydrocodone Bitart ([place] (5/325)) 1 tab Q6H PRN PO MODERATE PAIN LEVEL 4-6 Last administered on 04/10/16 19:48; Admin Dose 1 TAB; Start 12/12 at 23:30 Morphine Sulfate (morphine) 2 mg Q4H PRN IV SEVERE PAIN LEVEL 7-10 Last administered on 04/09/16 04:02; Admin Dose 2 MG; Start 04/07/16 at 23:30 Docusate Sodium (Colace) 100 mg Q12H PRN PO CONSTIPATION; Start 04/07/16 at 23: 30 Magnesium Hydroxide (Milk Of Mag) 30 ml DAILY PRN PO CONSTIPATION; Start at 23:30 Zolpidem Tartrate (Ambien) 5 mg QHS PRN PO SLEEP; Start 04/07/16 at 23:30 Enoxaparin Sodium (Lovenox) 40 mg DAILY SC Last administered on 04/11/16 08:57 ; Admin Dose 40 MG; Start 04/08/16 at 09:00 Ibuprofen (Motrin) 600 mg Q6H PRN PO MODERATE PAIN LEVEL 4-6; Start 04/10/16 at 16:30 DEDE SOTO M.D. Apr 11, 2016 11:34
--- NOTE | 2016-04-11 12:29 | PN ---
Date/Time of Note Date/Time of Note DATE: 04/11/16 TIME: 12:28 Assessment/Plan VTE Prophylaxis VTE Prophylaxis Intervention: LMWH Lines/Catheters IV [facility] port a cath Urinary Cath still in place: No Assessment/Plan Chief Complaint/Hosp Course S: 04/10 no events 04/11 less pain. Positive generalized itching. No rash. O: Vss PE No pallor Reg ctab Benign No edema; no rash A/P 1. Follicular lymphoma Stage 3; grade 2, CD 10+ with IGH/BCL2 Fusion t(14;18). Stable, start chemo. 2. Generalized pruritus: Narcotics? 3. Subclinical hypothyroidism Problems: Exam/Review of Systems Vital Signs Vitals Vital Signs Date Time Temp Pulse Resp B/P Pulse Ox O2 Delivery O2 Flow Rate FiO2 04/11/16 08:13 99.0 80 19 117/67 97 04/10/16 14:40 Room Air 04/10/16 12:10 2.0 Intake and Output 04/10/16 04/10/16 04/11/16 15:00 23:00 07:00 Intake Total 450 ml 550 ml Balance 450 ml 550 ml Results Result Diagram: 04/11/16 0435 04/11/16 0435 Results 24 hrs Laboratory Tests Test 04/10/16 13:40 04/10/16 19:46 04/11/16 04:35 HIV (1&2) Antibody NEGATIVE Hepatitis B Surface Antibody NEGATIVE Hepatitis B Surface Antigen NEGATIVE Hepatitis C Antibody NEGATIVE Urine Test NEGATIVE Anion Gap 11 Basophils # 0.0 Basophils % 0.5 Blood Urea Nitrogen 14 Calcium Level 8.6 Carbon Dioxide Level 28 Chloride Level 104 Creatinine 0.56 Eosinophils # 0.2 Eosinophils % 3.1 Glucose Level 85 Hematocrit 38.7 Hemoglobin 13.2 Hemoglobin A1c 5.1 Lymphocytes # 1.3 Lymphocytes % 23.6 Mean Corpuscular Hemoglobin 32.2 Mean Corpuscular Hemoglobin Concent 34.2 Mean Corpuscular Volume 94.3 Mean Platelet Volume 7.7 Monocytes # 0.5 Monocytes % 9.2 Neutrophils # 3.5 Neutrophils % 63.6 Nucleated Red Blood Cells # 0.0 Nucleated Red Blood Cells % 0.0 Platelet Count 198 Potassium Level 4.0 Red Blood Count 4.10 L Red Cell Distribution Width 12.2 Sodium Level 139 Thyroid Stimulating Hormone (TSH) 5.100 H White Blood Count 5.5 Medications Medications Current Medications Ondansetron HCl (Zofran Inj) 4 mg Q6H PRN IV NAUSEA AND/OR VOMITING Last administered on 04/08/16 18:26; Admin Dose 4 MG; Start 04/07/16 at 23:30 Acetaminophen (Tylenol Tab) 650 mg Q6H PRN PO PAIN LEVEL 1-3 OR FEVER Last administered on 04/11/16 06:03; Admin Dose 650 MG; Start 04/07/16 at 23:30 Acetaminophen/ Hydrocodone Bitart ([place] (5/325)) 1 tab Q6H PRN PO MODERATE PAIN LEVEL 4-6 Last administered on 04/10/16 19:48; Admin Dose 1 TAB; Start 12/12 at 23:30 Morphine Sulfate (morphine) 2 mg Q4H PRN IV SEVERE PAIN LEVEL 7-10 Last administered on 04/09/16 04:02; Admin Dose 2 MG; Start 04/07/16 at 23:30 Docusate Sodium (Colace) 100 mg Q12H PRN PO CONSTIPATION; Start 04/07/16 at 23: 30 Magnesium Hydroxide (Milk Of Mag) 30 ml DAILY PRN PO CONSTIPATION; Start at 23:30 Zolpidem Tartrate (Ambien) 5 mg QHS PRN PO SLEEP; Start 04/07/16 at 23:30 Enoxaparin Sodium (Lovenox) 40 mg DAILY SC Last administered on 04/11/16 08:57 ; Admin Dose 40 MG; Start 04/08/16 at 09:00 Ibuprofen (Motrin) 600 mg Q6H PRN PO MODERATE PAIN LEVEL 4-6; Start 04/10/16 at 16:30 BETH WASHINGTON MD Apr 11, 2016 12:29
[2016-04-11] MEDS ORDERED: DIPHENHYDRAMINE 50 MG CAP PO PRN (12:30)
[2016-04-11] MEDS ORDERED: DEXAMETHASONE 10 MG/ML 1 ML INJ IV PRN (18:30)
[2016-04-11] MEDS ORDERED: DIPHENHYDRAMINE 50 MG INJ IV PRN ×2 (18:30→20:00)
[2016-04-11] MEDS ORDERED: ONDANSETRON INJ 8 MG in SOD CHLORIDE 0.9% 50 ML IV PRN (18:30)
[2016-04-11 19:58] LABS: ALBUMIN 4.3 g/dL (3.8-4.8)
[2016-04-11] MEDS ORDERED: DEXTROSE 5% IV ONE (20:00)
[2016-04-11] MEDS ORDERED: DEXAMETHASONE IV ONE (20:00)
[2016-04-11] MEDS ORDERED: ACETAMINOPHEN 325 MG TAB PO PRN (20:00)
[2016-04-11] MEDS ORDERED: ONDANSETRON IV ONE (20:00)
[2016-04-11] MEDS ORDERED: SOD CHLORIDE 0.9% IV SCH (21:00)
[2016-04-11] MEDS ORDERED: RITUXIMAB IV SCH (21:00)
[2016-04-11] MEDS ORDERED: MEPERIDINE 50 MG INJ IV PRN (21:30)
[2016-04-11] MEDS ORDERED: BENDAMUSTINE HCL IV SCH (23:00)
[2016-04-11] MEDS ORDERED: DEXTROSE 5% IV SCH (23:00)
[2016-04-12] VITALS (27 sets, daily range): BP systolic 91–134; BP diastolic 51–93; PULSE 71–98; RESP 15–20
[2016-04-12] MEDS: ENOXAPARIN 40 MG/0.4 ML SYG SC SCH (09:11)
--- NOTE | 2016-04-12 10:03 | CONS ---
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 Patient has at least stage 3 disease as on physical exam it is above and below the diaphragm per CT. To definitively stage this lymphoma we will need a bone marrow bx. Pt has a FLIPI (follicular Lymphoma international prognostic Index) Score of 2 which gives her Intermate risk disease. 70% of these patients are expected to have a [address] C/A/P done demonstrates thick-walled 2.1 cm mass involving the left parotid gland that is likely an extrinsic enlarged lymph node however an intrinsic exophytic parotid mass cannot be excluded. Lymphadenopathy is also seen in the the right axilla , retroperitoneum extending along the left iliac chain and right inguinal region. Workup thus far reveals negative HIV and Hep panel and normal LDH. -Bone Marrow Bx done. will f/u results -port a cath in place in preparation for chemotherapy -days 2 dose of Bendamustine to be given today Regimen as follows: Bendamustine 90 mg/m2 IV over 30 to 60 minutes once per day on days 1 & 2 Rituximab (Rituxan) 375 mg/m2 IV once on day 1 Supportive medications Antiemetics, antipyretics, and antibiotics according to local standard of care Prophylactic use of G-CSF allowed according ASCO guidelines (2006) 28-day cycle for up to 6 cycles Approximately 40 min were spent at patient's bedside and in coordination of her care Problems: Consultation Date/Type/Reason Admit Date/Time Apr 07, 2016 at 23:08 Initial Consult Date 04/08/16 Type of Consultation: Hematology Reason for Consultation follicular lymphoma Referring Provider: GRAEME COHEN MD 24 HR Interval Summary Free Text/Dictation pt tolerated her day 1 dose of bendamustine and Rituxan yesterday Exam/Review of Systems Vital Signs Vitals Vital Signs Date Time Temp Pulse Resp B/P Pulse Ox O2 Delivery O2 Flow Rate FiO2 04/12/16 07:33 98.2 86 16 113/55 97 Room Air 04/10/16 12:10 2.0 Intake and Output 04/11/16 04/11/16 04/12/16 14:59 22:59 06:59 Intake Total 930 ml 1550 ml Balance 930 ml 1550 ml Exam Constitutional: alert, oriented Psych: no complaints Head: atraumatic, normocephalic Eyes: nl conjunctiva ENMT: nl external ears & nose, nl lips & teeth Neck: other (neck LAD batch or continuous still operator), supple Respiratory: clear to auscultation Cardiovascular: nl pulses, regular rate and rhythm Gastrointestinal: other (+ inguinal LAD), soft Musculoskeletal: nl extremities to inspection Extremities: normal pulses Results Result Diagram: 04/11/1643404/11/16434 Medications Medications Current Medications Ondansetron HCl (Zofran Inj) 4 mg Q6H PRN IV NAUSEA AND/OR VOMITING Last administered on 04/08/16 18:26; Admin Dose 4 MG; Start 04/07/16 at 23:30 Acetaminophen (Tylenol Tab) 650 mg Q6H PRN PO PAIN LEVEL 1-3 OR FEVER Last administered on 04/11/16 06:03; Admin Dose 650 MG; Start 04/07/16 at 23:30 Acetaminophen/ Hydrocodone Bitart ([place] (5/325)) 1 tab Q6H PRN PO MODERATE PAIN LEVEL 4-6 Last administered on 04/10/16 19:48; Admin Dose 1 TAB; Start 12/12 at 23:30 Morphine Sulfate (morphine) 2 mg Q4H PRN IV SEVERE PAIN LEVEL 7-10 Last administered on 04/09/16 04:02; Admin Dose 2 MG; Start 04/07/16 at 23:30 Docusate Sodium (Colace) 100 mg Q12H PRN PO CONSTIPATION; Start 04/07/16 at 23: 30 Magnesium Hydroxide (Milk Of Mag) 30 ml DAILY PRN PO CONSTIPATION; Start at 23:30 Zolpidem Tartrate (Ambien) 5 mg QHS PRN PO SLEEP; Start 04/07/16 at 23:30 Enoxaparin Sodium (Lovenox) 40 mg DAILY SC Last administered on 04/12/16 09:11 ; Admin Dose 40 MG; Start 04/08/16 at 09:00 Ibuprofen (Motrin) 600 mg Q6H PRN PO MODERATE PAIN LEVEL 4-6; Start 04/10/16 at 16:30 Diphenhydramine HCl (Benadryl) 50 mg Q6H PRN PO ITCHING; Start 04/11/16 at 12: 30 Dexamethasone (Decadron) 10 mg Q4H PRN IV REACTION; Start 04/11/16 at 18:30 Diphenhydramine HCl 25 mg 25 mg Q4H PRN IV ALLERGIC REACTION Last administered on 04/12/16 00:23; Admin Dose 25 MG; Start 04/11/16 at 18:30 Ondansetron HCl/ Sodium Chloride (Zofran Inj/NS) 54 ml @ 216 mls/hr Q8H PRN IV NAUSEA; Start 04/11/16 at 18:30 Meperidine HCl 50 mg 50 mg Q2H PRN IV POST OPERATIVE SHIVERING; Start 04/11/16 at 21:30 Bendamustine HCl/ Dextrose (Treanda/D5W) 500 ml @ 500 mls/hr Q24H IV ; Start at 04:30; Stop 04/13/16 at 05:29 DEDE SOTO M.D. Apr 12, 2016 10:03
[2016-04-12 11:33] LABS: HEMATOCRIT 37.7 % (37.0-47.0); HEMOGLOBIN 12.7 g/dl (12.0-16.0); MEAN CORPUSCULAR HEMOGLOBIN 31.8 pg (29.0-33.0); MEAN CORPUSCULAR HGB CONC 33.7 g/dl (32.0-37.0); MEAN CORPUSCULAR VOLUME 94.3 fl (82.0-101.0); MEAN PLATELET VOLUME 7.5 fl (7.4-10.4); PLATELET COUNT 209 10^3/UL (140-440); RED CELL DISTRIBUTION WIDTH 12.4 % (11.5-14.5); UNCORRECTED WBC 4.3 10^3/ul (4.8-10.8); WHITE BLOOD COUNT 4.3 10^3/ul (4.8-10.8)
[2016-04-12 11:34] LABS: CONDITION 1; LH ANALYZER COMMENTS 1
[2016-04-12 11:40] LABS: ALBUMIN 3.7 g/dl (3.3-4.9); POTASSIUM 3.8 mmol/L (3.5-5.1)
[2016-04-12 11:43] LABS: ALBUMIN/GLOBULIN RATIO 1.32; BILIRUBIN,INDIRECT 0.4 mg/dl (0-1.1); BILIRUBIN,TOTAL 0.4 mg/dl (0.2-1.3); CREATININE 0.47 mg/dl (0.44-1.00); TOTAL PROTEIN 6.5 g/dl (6.1-8.1)
[2016-04-12 11:44] LABS: CALCIUM 8.8 mg/dl (8.4-10.2)
--- NOTE | 2016-04-12 12:15 | PN ---
Date/Time of Note Date/Time of Note DATE: 04/12/16 TIME: 12:14 Assessment/Plan VTE Prophylaxis VTE Prophylaxis Intervention: ambulation Lines/Catheters IV [facility]ter Type (from [facility]): port a cath Urinary Cath still in place: No Assessment/Plan Chief Complaint/Hosp Course S: 04/10 no events 04/11 less pain. Positive generalized itching. No rash. 04/12 tolerating chemo. Less itching. O: Vss PE No pallor Reg ctab Benign No edema; no rash A/P 1. Follicular lymphoma Stage 3; gr 2, CD 10+ w IGH/BCL2 Fusion t(14;18). Stable , cont chemo. 2. Generalized pruritus: Narcotics? 3. Subclinical hypothyroidism Problems: Exam/Review of Systems Vital Signs Vitals Vital Signs Date Time Temp Pulse Resp B/P Pulse Ox O2 Delivery O2 Flow Rate FiO2 04/12/16 07:33 98.2 86 16 113/55 97 Room Air 04/10/16 12:10 2.0 Intake and Output 04/11/16 04/11/16 04/12/16 15:00 23:00 07:00 Intake Total 930 ml 1550 ml Balance 930 ml 1550 ml Results Result Diagram: 04/12/16 1117 04/12/16 1117 Results 24 hrs Laboratory Tests Test 04/12/16 11:17 Alanine Aminotransferase (ALT/SGPT) 54 Albumin 3.7 Albumin/Globulin Ratio 1.32 Alkaline Phosphatase 60 Anion Gap 19 #H Aspartate Amino Transf (AST/SGOT) 45 Basophils # Pending Basophils % Pending Blood Urea Nitrogen 7 Calcium Level 8.8 Carbon Dioxide Level 23 Chloride Level 102 Creatinine 0.47 Direct Bilirubin 0.00 Eosinophils # Pending Eosinophils % Pending Globulin 2.80 Glucose Level 279 #H Hematocrit 37.7 Hemoglobin 12.7 Indirect Bilirubin 0.4 Lymphocytes # Pending Lymphocytes % Pending Mean Corpuscular Hemoglobin 31.8 Mean Corpuscular Hemoglobin Concent 33.7 Mean Corpuscular Volume 94.3 Mean Platelet Volume 7.5 Monocytes # Pending Monocytes % Pending Neutrophils # Pending Neutrophils % Pending Nucleated Red Blood Cells # Pending Nucleated Red Blood Cells % Pending Platelet Count 209 Potassium Level 3.8 Red Blood Count 4.00 L Red Cell Distribution Width 12.4 Sodium Level 140 Total Bilirubin 0.4 Total Protein 6.5 White Blood Count 4.3 #L Medications Medications Current Medications Ondansetron HCl (Zofran Inj) 4 mg Q6H PRN IV NAUSEA AND/OR VOMITING Last administered on 04/08/16 18:26; Admin Dose 4 MG; Start 04/07/16 at 23:30 Acetaminophen (Tylenol Tab) 650 mg Q6H PRN PO PAIN LEVEL 1-3 OR FEVER Last administered on 04/11/16 06:03; Admin Dose 650 MG; Start 04/07/16 at 23:30 Acetaminophen/ Hydrocodone Bitart ([place] (5/325)) 1 tab Q6H PRN PO MODERATE PAIN LEVEL 4-6 Last administered on 04/10/16 19:48; Admin Dose 1 TAB; Start 12/12 at 23:30 Morphine Sulfate (morphine) 2 mg Q4H PRN IV SEVERE PAIN LEVEL 7-10 Last administered on 04/09/16 04:02; Admin Dose 2 MG; Start 04/07/16 at 23:30 Docusate Sodium (Colace) 100 mg Q12H PRN PO CONSTIPATION; Start 04/07/16 at 23: 30 Magnesium Hydroxide (Milk Of Mag) 30 ml DAILY PRN PO CONSTIPATION; Start at 23:30 Zolpidem Tartrate (Ambien) 5 mg QHS PRN PO SLEEP; Start 04/07/16 at 23:30 Enoxaparin Sodium (Lovenox) 40 mg DAILY SC Last administered on 04/12/16 09:11 ; Admin Dose 40 MG; Start 04/08/16 at 09:00 Ibuprofen (Motrin) 600 mg Q6H PRN PO MODERATE PAIN LEVEL 4-6; Start 04/10/16 at 16:30 Diphenhydramine HCl (Benadryl) 50 mg Q6H PRN PO ITCHING; Start 04/11/16 at 12: 30 Dexamethasone (Decadron) 10 mg Q4H PRN IV REACTION; Start 04/11/16 at 18:30 Diphenhydramine HCl 25 mg 25 mg Q4H PRN IV ALLERGIC REACTION Last administered on 04/12/16 00:23; Admin Dose 25 MG; Start 04/11/16 at 18:30 Ondansetron HCl/ Sodium Chloride (Zofran Inj/NS) 54 ml @ 216 mls/hr Q8H PRN IV NAUSEA; Start 04/11/16 at 18:30 Meperidine HCl 50 mg 50 mg Q2H PRN IV POST OPERATIVE SHIVERING; Start 04/11/16 at 21:30 Bendamustine HCl/ Dextrose (Treanda/D5W) 500 ml @ 500 mls/hr Q24H IV ; Start at 04:30; Stop 04/13/16 at 05:29 BETH WASHINGTON MD Apr 12, 2016 12:15
[2016-04-12 12:52] LABS: LYMPHOCYTES # 0.2 10^3/ul (0.8-2.9); MONOCYTE # 0.1 10^3/ul (0.3-0.9); NEUTROPHIL # 3.8 10^3/ul (1.6-7.5)
[2016-04-12 12:53] LABS: SMUDGE CELLS% Occasional
[2016-04-12] MEDS: PANTOPRAZOLE (EC) 40 MG TAB PO SCH (13:34)
[2016-04-13] MEDS ORDERED: DEXTROSE 5% IV SCH (04:30)
[2016-04-13] MEDS ORDERED: BENDAMUSTINE HCL IV SCH (04:30)
[2016-04-13 04:53] VITALS: BP 98/55; PULSE 69; RESP 17
[2016-04-13] MEDS: PANTOPRAZOLE (EC) 40 MG TAB PO SCH (05:04)
[2016-04-13 06:11] VITALS: BP 102/59; PULSE 68; RESP 17
[2016-04-13 06:15] LABS: POTASSIUM 4.2 mmol/L (3.5-5.1)
[2016-04-13 06:18] LABS: CREATININE 0.52 mg/dl (0.44-1.00)
[2016-04-13 06:19] LABS: CALCIUM 9.1 mg/dl (8.4-10.2); MAGNESIUM 1.9 mg/dl (1.7-2.5); PHOSPHORUS 3.5 mg/dl (2.5-4.9)
[2016-04-13 07:42] VITALS: BP 110/56; RESP 18
[2016-04-13] MEDS: ENOXAPARIN 40 MG/0.4 ML SYG SC SCH (09:09)
--- NOTE | 2016-04-13 12:21 | CONS ---
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 Patient has stage 3 (bone marrow bx negative) disease as on physical exam it is above and below the diaphragm per CT. To definitively stage this lymphoma we will need a bone marrow bx. Pt has a FLIPI (follicular Lymphoma international prognostic Index) Score of 2 which gives her Intermate risk disease. 70% of these patients are expected to have a [address] C/A/P done demonstrates thick-walled 2.1 cm mass involving the left parotid gland that is likely an extrinsic enlarged lymph node however an intrinsic exophytic parotid mass cannot be excluded. Lymphadenopathy is also seen in the the right axilla, retroperitoneum extending along the left iliac chain and right inguinal region. Workup thus far reveals negative HIV and Hep panel and normal LDH. -Bone Marrow Bx is negative -port a cath in place in preparation for chemotherapy -days 2 dose of Bendamustine to be given today -pt can be discharged with 5 days of Neupogen to f/u with Dr. Adilson somers of Apr 24. Case management will have to facilitate this Regimen as follows: Bendamustine 90 mg/m2 IV over 30 to 60 minutes once per day on days 1 & 2 Rituximab (Rituxan) 375 mg/m2 IV once on day 1 Supportive medications Antiemetics, antipyretics, and antibiotics according to local standard of care Prophylactic use of G-CSF allowed according ASCO guidelines (2006) 28-day cycle for up to 6 cycles Approximately 40 min were spent at patient's bedside and in coordination of her care Problems: Consultation Date/Type/Reason Admit Date/Time Apr 07, 2016 at 23:08 Initial Consult Date 04/08/16 Type of Consultation: Hematology Reason for Consultation follicular lymphoma Referring Provider: GRAEME COHEN MD 24 HR Interval Summary Free Text/Dictation pt completed her bendamustine yesterday Exam/Review of Systems Vital Signs Vitals Vital Signs Date Time Temp Pulse Resp B/P Pulse Ox O2 Delivery O2 Flow Rate FiO2 04/13/16 07:42 98.3 78 18 110/56 94 04/13/16 06:11 Room Air 04/10/16 12:10 2.0 Intake and Output 04/12/16 04/12/16 04/13/16 15:00 23:00 07:00 Intake Total 2000 ml 980 ml Balance 2000 ml 980 ml Exam Constitutional: alert, oriented Psych: no complaints Head: normocephalic Eyes: nl conjunctiva ENMT: nl external ears & nose Neck: non-tender, other (painful LAD has slightly improved), supple Respiratory: clear to auscultation Cardiovascular: nl pulses, regular rate and rhythm Gastrointestinal: soft Musculoskeletal: nl extremities to inspection, nl gait and stance Results Result Diagram: 04/12/16 1117 04/13/16 0435 Results 24 hrs Laboratory Tests Test 04/12/16 12:45 04/13/16 04:35 Bedside Glucose 168 Anion Gap 17 H Blood Urea Nitrogen 10 Calcium Level 9.1 Carbon Dioxide Level 25 Chloride Level 105 Creatinine 0.52 Glucose Level 126 # Magnesium Level 1.9 Phosphorus Level 3.5 Potassium Level 4.2 Sodium Level 143 Medications Medications Current Medications Ondansetron HCl (Zofran Inj) 4 mg Q6H PRN IV NAUSEA AND/OR VOMITING Last administered on 04/08/16 18:26; Admin Dose 4 MG; Start 04/07/16 at 23:30 Acetaminophen (Tylenol Tab) 650 mg Q6H PRN PO PAIN LEVEL 1-3 OR FEVER Last administered on 04/11/16 06:03; Admin Dose 650 MG; Start 04/07/16 at 23:30 Acetaminophen/ Hydrocodone Bitart ([place] (5/325)) 1 tab Q6H PRN PO MODERATE PAIN LEVEL 4-6 Last administered on 04/10/16 19:48; Admin Dose 1 TAB; Start 12/12 at 23:30 Morphine Sulfate (morphine) 2 mg Q4H PRN IV SEVERE PAIN LEVEL 7-10 Last administered on 04/09/16 04:02; Admin Dose 2 MG; Start 04/07/16 at 23:30 Docusate Sodium (Colace) 100 mg Q12H PRN PO CONSTIPATION; Start 04/07/16 at 23: 30 Magnesium Hydroxide (Milk Of Mag) 30 ml DAILY PRN PO CONSTIPATION; Start at 23:30 Zolpidem Tartrate (Ambien) 5 mg QHS PRN PO SLEEP; Start 04/07/16 at 23:30 Enoxaparin Sodium (Lovenox) 40 mg DAILY SC Last administered on 04/13/16 09:09 ; Admin Dose 40 MG; Start 04/08/16 at 09:00 Ibuprofen (Motrin) 600 mg Q6H PRN PO MODERATE PAIN LEVEL 4-6 Last administered on 04/13/16 09:18; Admin Dose 600 MG; Start 04/10/16 at 16:30 Diphenhydramine HCl (Benadryl) 50 mg Q6H PRN PO ITCHING; Start 04/11/16 at 12: 30 Dexamethasone (Decadron) 10 mg Q4H PRN IV REACTION; Start 04/11/16 at 18:30 Diphenhydramine HCl 25 mg 25 mg Q4H PRN IV ALLERGIC REACTION Last administered on 04/12/16 00:23; Admin Dose 25 MG; Start 04/11/16 at 18:30 Ondansetron HCl/ Sodium Chloride (Zofran Inj/NS) 54 ml @ 216 mls/hr Q8H PRN IV NAUSEA; Start 04/11/16 at 18:30 Meperidine HCl (Demerol) 50 mg Q2H PRN IV POST OPERATIVE SHIVERING; Start 04/11 at 21:30 Pantoprazole (Protonix Tab) 40 mg DAILY@06 PO Last administered on 04/13/16 05 :04; Admin Dose 40 MG; Start 04/12/16 at 12:30 DEDE SOTO M.D. Apr 13, 2016 12:21
--- NOTE | 2016-04-13 14:44 | PDOCDIS ---
Discharge Instructions DIAGNOSIS Discharge Diagnosis: lymphoma CONDITION Patient Condition: Good HOME CARE INSTRUCTIONS: Special Diet: regular ACTIVITY: Activity Restrictions: Slowly Increase Activity No Sexual Activity FOLLOW UP/APPOINTMENTS Appointments Dr De Anda 04/24 PCP BETH Cuadra MD Apr 13, 2016 14:44
[2016-04-13] MEDS ORDERED: PANT40TA4 PO (14:46)
[2016-04-13] MEDS ORDERED: BEN50 PO (14:46)
[2016-04-13] MEDS ORDERED: ACET325T33 PO (14:46)
--- NOTE | 2016-04-13 15:20 | DS ---
DATE OF ADMISSION: 04/07/2016 DATE OF DISCHARGE: 04/13/2016 PRIMARY CARE PHYSICIAN: Unknown. [employer] POST REPAIRER: Dr. Soto. DIAGNOSIS ON ADMISSION: Lymphadenopathy. DIAGNOSES ON DISCHARGE: 1. Follicular lymphadenopathy. 2. Subclinical hypothyroidism. 3. Generalized pruritus. HOSPITAL COURSE: This is a 45-year-old female unfortunately admitted with swollen lymph glands. An outpatient biopsy was already done. She was diagnosed with follicular lymphoma and post bone marro w biopsy and chemotherapy port, was started on chemotherapy. The patient, I believe, had 2 sessions of chemotherapy. The patient is presently stable and fit for discharge, with followup with oncolog y. Chemotherapy port will remain in place. I will give her a prescription for GI prophylaxis and B enadryl for itching. Of note, her TSH was found to be a little high, but this can be followed with surveillance for hypot hyroid-like symptoms. LABORATORY: Sodium 143, potassium 4, chloride 105, bicarbonate 25, BUN of 10, creatinine .5, g lucose 120. A1c 5.1. LFTs okay. TSH 5.1, free T4 of 6.7, T3 uptake of 36, uric acid of 4. Total c holesterol 122, LDL of 73, HDL 39, triglycerides of 50. Gammaglobulin electrophoresis done as well. INR 0.9. Urine negative. White cell count of 4.3, hemoglobin and hematocrit of 12 and 37, and platelets of 209. Hepatitis and HIV panels negative. [facility] scan-guided needle biopsy of left iliac bone crest [facility] neck showed a thick-walled 2.1 cm mass involving the left parotid gland, likely an extrinsic large lymph node, however, an intrinsic exophytic parotid mass cannot be excluded. No moe nge in levels 1, 2, 3 lymphadenopathy, which on chest CT was read as lymphadenopathy involving the r ight axilla and retroperitoneum, extending along the left iliac chain and right inguinal region. Mi ld confluent low densities in the left adnexal region, likely ovarian cysts. Small fluid in the cul -de-sac, likely stage III grade II CD10+, with IGH/BC L2 fusion of translocation of . DISCHARGE PLAN: 1. Home. Follow up with primary in 1 week. 2. Oncology on the , I believe. DIET: Regular. ACTIVITY: No heavy lifting. DURABLE MEDICAL EQUIPMENT: None. CODE STATUS: FULL. CONDITION: Good. BARRIERS TO DISCHARGE: None. PENDING TESTS: None. FUNCTIONAL STATUS: The patient awake and alert, agrees with plan of care. REASON FOR ADMISSION: Lymphoma. MEDICATIONS: 1. Tylenol as needed. 2. Benadryl 50 mg q.6 as needed for itching. 3. Protonix 40 daily, maybe 5 days. 4. Neupogen 80 mcg subcutaneous daily for 5 more days. The assistance of Neupogen was done by case management. Dictated By: BETH WASHINGTON MD AC/NTS Conf#: [id number] DID#: [id number] CC: DEDE SOTO MD;*EndCC*
[2016-04-13] MEDS ORDERED: FILGRASTIM 300 MCG INJ SC SCH (16:00)
[2016-04-13] MEDS ORDERED: HEPARIN (100 UNITS/ML) 5 ML SYG CATHETER ONE (18:00)
== END 2016-04-13 19:10 | disposition home or self-care (01) | DRG 842 ==
LOC: FTE 20:48 → MS1 23:08
PROVIDERS: ADMIT Internal Medicine; ATTEND Internal Medicine
PROC: 02H633Z Insertion of Infusion Device into Right Atrium, Percutaneous Approach (ICD-10-PCS; 2016-04-07)
PROC: B2141ZZ Fluoroscopy of Right Heart using Low Osmolar Contrast (ICD-10-PCS; 2016-04-07)
PROC: 07DR3ZX Extraction of Iliac Bone Marrow, Percutaneous Approach, Diagnostic (ICD-10-PCS; principal; 2016-04-10)
PROC: 02HV33Z Insertion of Infusion Device into Superior Vena Cava, Percutaneous Approach (ICD-10-PCS; 2016-04-10)
PROC: 05HM33Z Insertion of Infusion Device into Right Internal Jugular Vein, Percutaneous Approach (ICD-10-PCS; 2016-04-10)
PROC: B543ZZA Ultrasonography of Right Jugular Veins, Guidance (ICD-10-PCS; 2016-04-10)
DX: C82.21 Follicular lymphoma grade III, unspecified, lymph nodes of head, face, and neck (principal); E02 Subclinical iodine-deficiency hypothyroidism; L29.8 Other pruritus; Z92.21 Personal history of antineoplastic chemotherapy; Z79.899 Other long term (current) drug therapy
CPT/HCPCS: 36561; 70491; 71260; 74177; 76536; 76942; 77012; 80048; 80053; 80061; 82962; 83036; 83615; 83735; 84100; 84155; 84165; 84436; 84443; 84479; 84560; 84703; 85025; 85610; 86703; 86704; 86706; 86709; 86803; 87340; 88305; 88313; 88341; 88342; 96374; 96375; J9310; C1788; J0690; J1100; J1200; J1642; J1644; J1650; J2250; J2270; J2405; J3010; J7040; J7050; J9033; Q9967